=== PATIENT | female | born 1975 | race Caucasian/White ===

== ENCOUNTER 2018-01-31 06:17 | Emergency (ER) | payer BC ==
[~2018-01-31] VITALS: Ht 157.5 cm; Wt 75.5 kg
[2018-01-31 07:18] VITALS: BP 114/79
== END 2018-01-31 08:21 | disposition home or self-care (01) ==
LOC: ED 06:17
DX: S83.92XA Sprain of unspecified site of left knee, initial encounter (principal); W18.49XA Other slipping, tripping and stumbling without falling, initial encounter; Y93.89 Activity, other specified; Y92.89 Other specified places as the place of occurrence of the external cause; Y99.8 Other external cause status
CPT/HCPCS: Q0092